=== PATIENT | female | born 1975 | race African-American/Black ===

== ENCOUNTER 2024-02-15 07:51 | Emergency (ER) | payer BC | END 2024-02-15 08:30 | disposition home or self-care (01) | LOC: DL.ED 07:51 | DX: L25.9 Unspecified contact dermatitis, unspecified cause (principal) | CPT/HCPCS: 99282 ==

== ENCOUNTER 2024-02-28 20:42 | Emergency (ER) | payer BC ==
[2024-02-28] MEDS: Triamcinolone Acetonide 0.1% Oint 15 GM Tube TOP ONE (21:22)
[2024-02-28] MEDS: methylPREDNISolone Sodium Succinate 40 MG/1 ML SDV IM ONE (21:23)
[2024-02-28] MEDS: Take Home: hydrOXYzine HCl 25 MG Tab, 4 Tab Pack PO ONE (21:28)
== END 2024-02-28 21:33 | disposition home or self-care (01) ==
LOC: DL.ED 20:42
DX: L30.8 Other specified dermatitis (principal); Z91.048 Other nonmedicinal substance allergy status
CPT/HCPCS: 96372; 99282; A9270; J2919